=== PATIENT | female | born 1965 | race Caucasian/White ===

== ENCOUNTER 2022-04-26 14:28 | Emergency (ER) | payer MEDICARE, OTHER, SELFPAY ==
[2022-04-26] VITALS (7 sets, daily range): BP systolic 124–163; BP diastolic 68–84; PULSE 62–68; RESP 15–24; TEMP 36.7; O2SAT 95–98; BMI 31.7
--- NOTE | 2022-04-26 15:08 | EDS_ITS ---
HPI <DENISE Fisher - Last Filed: 04/26/22 21:45> History of Present Illness Chief Complaint: Neuro S/Sx Narrative Narrative: Presents to the ED with feelings of dizziness, left-sided face numbness, and feelings that her thought process is off. These feelings started shortly after she woke up at 8:00 am this morning. Patient states she went to her PCP appointment this morning and they suggested she come here to be checked out. Patient also admits to having a headache that started this afternoon, and is prone to headaches and migraines. She states this headache is along the temporal region bilaterally and she has had headaches like this in the past. PFSH <DENISE Fisher - Last Filed: 04/26/22 21:45> [facility] Medical History Depression History of stress test Hyperlipidemia Hypertension Incontinence Normal echocardiogram Spinal fracture Allergy/AdvReac Type Severity Reaction Status Date / Time acetaminophen [From Vicodin] Allergy Hives Verified 04/26/22 14:35 hydrocodone [From Vicodin] Allergy Hives Verified 04/26/22 14:35 Surgical History History of appendectomy History of orthopedic surgery History of rhinoplasty History of spinal fusion History of thyroidectomy Social History Smoking Status: Never smoker ROS <DENISE Fisher - Last Filed: 04/26/22 21:45> ROS ED Constitutional Constitutional ED: Denies chills, fever(s) or sweats Eyes Eyes: Denies blurry vision, change in vision, diplopia or loss of vision ENT ENT ED: Denies abnormal hearing, rhinorrhea, sore throat or tinnitus Cardiovascular Cardiovascular: Denies chest pain or palpitations Respiratory/Chest Respiratory/Chest: Denies cough or dyspnea Gastrointestinal Gastrointestinal: Denies abdominal pain, diarrhea, nausea or vomiting Genitourinary Genitourinary ED: Denies dysuria Musculoskeletal Musculoskeletal: Denies neck pain Integumentary Denies Abrasions or rash Neurologic Neurologic: Reports dizziness, headache(s) and numbness; Denies abnormal gait, abnormal speech, focal weakness or weakness EXAM <DENISE Fisher - Last Filed: 04/26/22 21:45> Physical Exam Const Vital Signs: 04/26/22 14:30 04/26/22 15:30 04/26/22 15:59 Temperature 98.1 F Temperature Source Oral Pulse Rate 68 65 Respiratory Rate 24 H 16 Blood Pressure 163/84 H 131/75 H Blood Pressure Mean 110 93 Pulse Ox 98 98 97 Oxygen Delivery Method Room Air Room Air Room Air 04/26/22 16:19 04/26/22 17:25 04/26/22 18:29 Temperature Temperature Source Pulse Rate 62 67 68 Respiratory Rate 16 15 16 Blood Pressure 144/78 H 160/82 H 129/72 H Blood Pressure Mean 100 108 91 Pulse Ox 97 98 95 Oxygen Delivery Method Room Air Room Air Room Air 04/26/22 18:36 Temperature Temperature Source Pulse Rate Respiratory Rate Blood Pressure 124/68 H Blood Pressure Mean Pulse Ox 97 Oxygen Delivery Method Positive well nourished HEENT Reports normocephalic, TM's clear and moist mucous membranes atraumatic; Negative for tenderness Tympanic Membrane ED: Yes TM's clear Eyes PERRL and EOMs intact bilaterally Neck supple General: Negative for tenderness Resp normal respiratory effort and clear to auscultation bilaterally Auscultation: Negative for rales, rhonchi or wheezes Cardio regular rate, regular rhythm and no murmurs GI non-tender and non-distended Palpation: soft Extremity normal to inspection and full ROM General Extremety ED: Negative for edema or tenderness General Extremity: Negative for edema Neuro oriented x3, CN's II-XII intact bilaterally, moves all extremities and no focal motor deficits Neuro Narrative: Decreased sensation to entire left side of face. Sensorium / Orientation: awake and alert Coordination / Balance: [id number]-[id number] test normal, [id number] test normal, Romberg test negative and rapid alternating mvmt upper ext normal Speech: speech normal Gait (Neuro): normal gait Motor Exam: strength 5/5 throughout; Negative for general weakness Psych mental status grossly normal Skin Lesions: no lesions Rashes: no rashes NIHSS NIHSS Initial: 1a Level of Consciousness: 0 1b LOC Questions (Score 2 if aphasic/stupor): 0 1c LOC Commands (Only score 1st attempt): 0 2 Best Gaze (If aphasic, use reflexive mvmts.): 0 3 Visual: 0 4 Facial Palsy: 0 5 Motor Arm Right (UN = amputation/fusion): 0 5 Motor Arm Left: 0 6 Motor Leg Right: 0 6 Motor Leg Left: 0 7 Limb ataxia (Only + if out of proportion): 0 8 Sensory (Aphasia/stupor=0 or 1, coma=2): 1 9 Best Language: 0 10 Dysarthria (mute, coma=2, intubated=UN): 0 11 Extinction and Inattention (only scored if +): 0 Total Score: 1 <Dr. Maximus Purcell MD - Last Filed: 04/26/22 17:20> Physical Exam Const Vital Signs: 04/26/22 14:30 04/26/22 15:30 04/26/22 15:59 Temperature 98.1 F Temperature Source Oral Pulse Rate 68 65 Respiratory Rate 24 H 16 Blood Pressure 163/84 H 131/75 H Blood Pressure Mean 110 93 Pulse Ox 98 98 97 Oxygen Delivery Method Room Air Room Air Room Air 04/26/22 16:19 04/26/22 17:25 04/26/22 18:29 Temperature Temperature Source Pulse Rate 62 67 68 Respiratory Rate 16 15 16 Blood Pressure 144/78 H 160/82 H 129/72 H Blood Pressure Mean 100 108 91 Pulse Ox 97 98 95 Oxygen Delivery Method Room Air Room Air Room Air 04/26/22 18:36 Temperature Temperature Source Pulse Rate Respiratory Rate Blood Pressure 124/68 H Blood Pressure Mean Pulse Ox 97 Oxygen Delivery Method NIHSS NIHSS Initial: Total Score: 1 MDM <DENISE Fisher - Last Filed: 04/26/22 21:45> [facility] MDM Narrative Medical decision making narrative: CT and CTA of the brain came back normal. Patient has been given Toradol and Reglan for her headache. Stroke neurology was consulted and it was their recommendation that as long as symptoms improve after headache treatment, it would be safe for her to discharge home with neurology follow-up due to having a very low risk of stroke. After treatment for the headache, patient reported that her head pain, vertigo, and the numbness on the left side of her face significantly improved, but not completely. Patient denies any confusion or disoriented thinking. Patient is stable and would like to discharge home with neurology follow-up. Lab Data Attestation: I reviewed the patient's lab results. Labs: Laboratory Results - last 24 hr 04/26/22 04/26/22 04/26/22 14:33 14:33 14:33 WBC 6.8 RBC 4.74 Hgb 14.7 Hct 42.7 MCV 90.1 MCH 31.0 MCHC 34.4 RDW Std Deviation 47.1 H RDW Coeff of Armando 14.4 Plt Count 326 MPV 10.7 Immature Gran % (Auto) 0.300 Neut % (Auto) 57.5 Lymph % (Auto) 28.7 [place] % (Auto) 8.9 Eos % (Auto) 3.7 Baso % (Auto) 0.9 Absolute Neuts (auto) 3.9 Absolute Lymphs (auto) 1.96 Nucleated RBC % 0 PT 12.7 INR 1.0 APTT 29.8 Sodium 144 Potassium 3.9 Chloride 113 H Carbon Dioxide 24.0 Anion Gap 7 BUN 14 Creatinine 1.01 Estim Creat Clear Calc 59.04 Est GFR (MDRD) Af Amer 72 Est GFR (MDRD) Non-Af 60 BUN/Creatinine Ratio 13.9 Glucose 95 Calcium 9.2 Troponin I High Sens 32 POC Glucose 04/26/22 16:26 WBC RBC Hgb Hct MCV MCH MCHC RDW Std Deviation RDW Coeff of Armando Plt Count MPV Immature Gran % (Auto) Neut % (Auto) Lymph % (Auto) [place] % (Auto) Eos % (Auto) Baso % (Auto) Absolute Neuts (auto) Absolute Lymphs (auto) Nucleated RBC % PT INR APTT Sodium Potassium Chloride Carbon Dioxide Anion Gap BUN Creatinine Estim Creat Clear Calc Est GFR (MDRD) Af Amer Est GFR (MDRD) Non-Af BUN/Creatinine Ratio Glucose Calcium Troponin I High Sens POC Glucose 84 Radiography Diagnostic Testing: Clinical Impression(s) from Imaging Studies Brain CT 04/26/22 15:09 IMPRESSION: No acute intracranial abnormality. Aspect score 10 Electronically Signed: Bernardo Shultz MD at 16:17 EST , ADDENDUM: 04/26/22 1632 IMPRESSION: No acute intracranial abnormality. Aspect score 10 N.B. : The above Results were Read Back by Bernardo Shultz MD to Leandra Hernandez PA, and understanding confirmed on 04/26/2022 16:26:00 (ET). Electronically Signed: Bernardo Shultz MD at 16:17 EST , Head/Neck CTA 04/26/22 15:10 IMPRESSION: Normal CTA Head and neck with contrast. Electronically Signed: Gregg Couch MD at 16:27 EST , ADDENDUM: 04/26/22 1639 IMPRESSION: Normal CTA Head and neck with contrast. N.B. : The above Results were Read Back by Gregg Couch MD to Leandra Hernandez PA, and understanding confirmed on 04/26/2022 16:32:16 (ET). Electronically Signed: Gregg Couch MD at 16:27 EST , Chest X-Ray 04/26/22 16:00 IMPRESSION: No acute cardiopulmonary pathology Electronically Signed: Gregg Couch MD at 16:54 EST , I reviewed CT and CTA and agree with radiologists findings. EKG Initial EKG: Interpretation: Sinus Rhythm Comments: rate 62 BPM. No signs of cardiac ischemia or ST elevation. This EKG has also been reviewed by attending ED physician. <Dr. Maximus Purcell MD - Last Filed: 04/26/22 17:20> [facility] Lab Data Labs: Laboratory Results - last 24 hr 04/26/22 04/26/22 04/26/22 14:33 14:33 14:33 WBC 6.8 RBC 4.74 Hgb 14.7 Hct 42.7 MCV 90.1 MCH 31.0 MCHC 34.4 RDW Std Deviation 47.1 H RDW Coeff of Armando 14.4 Plt Count 326 MPV 10.7 Immature Gran % (Auto) 0.300 Neut % (Auto) 57.5 Lymph % (Auto) 28.7 [place] % (Auto) 8.9 Eos % (Auto) 3.7 Baso % (Auto) 0.9 Absolute Neuts (auto) 3.9 Absolute Lymphs (auto) 1.96 Nucleated RBC % 0 PT 12.7 INR 1.0 APTT 29.8 Sodium 144 Potassium 3.9 Chloride 113 H Carbon Dioxide 24.0 Anion Gap 7 BUN 14 Creatinine 1.01 Estim Creat Clear Calc 59.04 Est GFR (MDRD) Af Amer 72 Est GFR (MDRD) Non-Af 60 BUN/Creatinine Ratio 13.9 Glucose 95 Calcium 9.2 Troponin I High Sens 32 POC Glucose 04/26/22 16:26 WBC RBC Hgb Hct MCV MCH MCHC RDW Std Deviation RDW Coeff of Armando Plt Count MPV Immature Gran % (Auto) Neut % (Auto) Lymph % (Auto) [place] % (Auto) Eos % (Auto) Baso % (Auto) Absolute Neuts (auto) Absolute Lymphs (auto) Nucleated RBC % PT INR APTT Sodium Potassium Chloride Carbon Dioxide Anion Gap BUN Creatinine Estim Creat Clear Calc Est GFR (MDRD) Af Amer Est GFR (MDRD) Non-Af BUN/Creatinine Ratio Glucose Calcium Troponin I High Sens POC Glucose 84 Radiography Diagnostic Testing: Clinical Impression(s) from Imaging Studies Brain CT 04/26/22 15:09 IMPRESSION: No acute intracranial abnormality. Aspect score 10 Electronically Signed: Bernardo Shultz MD at 16:17 EST , ADDENDUM: 04/26/22 1632 IMPRESSION: No acute intracranial abnormality. Aspect score 10 N.B. : The above Results were Read Back by Bernardo Shultz MD to Leandra Hernandez PA, and understanding confirmed on 04/26/2022 16:26:00 (ET). Electronically Signed: Bernardo Shultz MD at 16:17 EST , Head/Neck CTA 04/26/22 15:10 IMPRESSION: Normal CTA Head and neck with contrast. Electronically Signed: Gregg Couch MD at 16:27 EST , ADDENDUM: 04/26/22 1639 IMPRESSION: Normal CTA Head and neck with contrast. N.B. : The above Results were Read Back by Gregg Couch MD to Leandra Hernandez PA, and understanding confirmed on 04/26/2022 16:32:16 (ET). Electronically Signed: Gregg Couch MD at 16:27 EST , Chest X-Ray 04/26/22 16:00 IMPRESSION: No acute cardiopulmonary pathology Electronically Signed: Gregg Couch MD at 16:54 EST , EKG Initial EKG: Attestation: I personally reviewed and interpreted this EKG as follows: Interpretation: No Acute Injury Pattern Treatment and Re-Evaluation Narrative: Seen and evaluated independently and in conjunction with physician assistant professor of philosophy. Agree with notes above unless documented otherwise. Patient woke up with some symptoms developed others later, last known well around 8 AM this morning, presents afternoon for symptoms that include left facial paresthesias, some mild vertigo, and headache. NIHSS 1 for sensory only, there is no objective ataxia, her vertigo does not sound peripheral in nature and is no worse with head movements. For this reason we ordered a stroke work-up including CT and CT angiography of the head and neck, this was all negative. She is not able to have an MRI because she has an implanted bladder stimulator that is not compatible. We discussed with stroke neurology, if her headache improves with treatment, they recommend close outpatient follow-up with neurology which we have locally. Otherwise admission and repeat CT in 24 hours. Discharge Plan Triage Chief Complaint: Neuro S/Sx Other Complaint: Headache ED Midlevel Provider: Leandra Hernandez ED Provider: Maximus Purcell Dx/Rx/DC Orders Clinical Impression: Cephalgia, Vertigo, Facial paresthesia Instructions: ED Headache Unspecified, ED Vertigo, Unspecified Primary Care Provider: Dinora Rothman Referrals: Dinora Rothman MD [Primary Care Provider] - Patrick Ayala MD [Non-Staff -Ordering Privileges] - 3-5 Days Activity Restrictions/Additional Instructions: Please seek medical attention if you notice any new or worsening symptoms. Follow-up with neurology for atypical headache. Disposition Disposition: Home, Self Care Discharge Date/Time: 04/26/22 18:50
--- NOTE | 2022-04-26 15:09 | EKG12_ITS ---
Test Reason : NEURO Blood Pressure : / mmHG Vent. Rate : 062 BPM Atrial Rate : 062 BPM P-R Int : 158 ms QRS Dur : 082 ms QT Int : 414 ms P-R-T Axes : 054 017 039 degrees QTc Int : 420 ms Normal sinus rhythm Normal ECG Confirmed by GERMAIN PICKENS, NISHANT ([id number]), video news editor ALMAS HASSAN ([id number]) on 05/01/2022 9:16:37 A M Referred By: Confirmed By:JENNIFER GROVES MD
--- NOTE | 2022-04-26 15:09 | CT_ITS ---
We are attempting to reach an attending provider to discuss findings. An addendum with communication details will be sent when the communication is complete. EXAM: CT HEAD WITHOUT INTRAVENOUS CONTRAST CLINICAL INDICATION: Neuro deficit, acute, stroke suspected TECHNIQUE: Multiple axial images were obtained of the head without intravenous contrast. This CT exam was performed using one or more of the following dose reduction techniques: automated exposure control, adjustment of the mA and/or kV according to patient size, and/or use of iterative reconstruction technique. This report was created using [employer] report [employer] technology. COMPARISON: None. FINDINGS: BRAIN AND EXTRA-AXIAL SPACES: Normal. No intra- or extra-axial hemorrhage. No evidence of acute infarct. No intracranial mass or mass effect. There is preservation of the boyd/white matter interface. Posterior fossa structures are unremarkable. Ventricles are appropriate for age. No hydrocephalus. Basal cisterns are patent. BONES/JOINTS: Normal. No discrete lytic or blastic abnormalities. SINUSES: Unremarkable as visualized. No acute sinusitis. MASTOID AIR CELLS: Normal. Clear. ORBITS: Visualized globes, extraocular muscles, optic nerves and retrobulbar fat appear unremarkable. CT/STROKE Brain/Head without Cont IMPRESSION: No acute intracranial abnormality. Aspect score 10 Electronically Signed: Bernardo Shultz MD at 16:17 EST ,
--- NOTE | 2022-04-26 15:10 | CT_ITS ---
We are attempting to reach an attending provider to discuss findings. An addendum with communication details will be sent when the communication is complete. STUDY: CTA HEAD AND NECK WITH CONTRAST REASON FOR EXAM: Female, 56 years old. Neuro deficit, acute, stroke suspected RADIATION DOSAGE (If Supplied By Facility): CTDIvol = ( 27.79 ) mGy, DLP = ( 1366.70 ) mGycm TECHNIQUE: CT angiography was performed with a multi-detector CT scanner. Data acquisition was obtained from the skull base through the vertex following intravenous administration of IV 100mL Isovue-370. MIP images were reconstructed from the axial data set. Post-processing of the angiographic images was performed, with multiplanar reformation and 3D reconstruction. Individualized dose optimization techniques were used for this CT. COMPARISON: No relevant priors. FINDINGS: Normal bilateral petrous carotid arteries. Normal right cavernous carotid artery with a normal supraclinoid bifurcation. Normal left cavernous carotid artery with a normal supraclinoid bifurcation. Normal right A1 segments of the anterior cerebral artery. Normal left A1 segments of the anterior cerebral artery. Anterior communicating artery not visualized consistent with normal variant). Normal bilateral A2 segments of the anterior cerebral arteries. Normal right M1 and M2 segments of the middle cerebral arteries, with a normal M1 bifurcation. Normal left M1 and M2 segments of the middle cerebral arteries, with a normal M1 bifurcation. Normal right posterior communicating artery (PCOM). Left posterior communicating artery not visualized consistent with normal variant. Normal bilateral vertebral arteries. Normal basilar artery with a normal basilar bifurcation. The visualized bilateral superior cerebellar (SCA) arteries are normal. Normal bilateral P1, P2 and visualized P3 segments of the posterior cerebral arteries. There is no demonstrated aneurysm of the [place] of [place]. . AORTIC ARCH: Normal visualized aortic arch. Normal origins of the brachiocephalic, left common carotid, and left subclavian arteries. RIGHT CAROTID ARTERIES: Normal right common carotid artery (CCA). Normal right common carotid bulb. Normal origin of the right internal carotid (ICA) artery without a hemodynamically significant stenosis. Normal visualized cervical portion of the right internal carotid artery. Normal origin of the right external carotid artery (ECA). LEFT CAROTID ARTERIES: Normal left common carotid artery (CCA). Normal left common carotid bulb. Normal origin of the left internal carotid (ICA) artery without a hemodynamically significant stenosis. Normal visualized cervical portion of the left internal carotid artery. Normal origin of the left external carotid artery (ECA). VERTEBRAL ARTERIES: Right vertebral is dominant and normal caliber. The left vertebral is diffusely narrowed consistent with normal variant CT/STROKE CTA Head AND Neck W/Con IMPRESSION: Normal CTA Head and neck with contrast. Electronically Signed: Gregg Couch MD at 16:27 EST ,
[2022-04-26 15:38] LABS: Absolute Lymphocyte Count 1.96 X10^3/uL (0.83-4.51); Absolute Neutrophil Count 3.9 X10^3/uL (2.0-7.7); Basophil# 0.06 X10^3/uL; Basophil% 0.9 % (0-1); Eosinophil# 0.25 X10^3/uL; Eosinophils% 3.7 % (0-5); Hematocrit 42.7 % (37-47); Hemoglobin 14.7 g/dL (12.0-15.0); Lymphocyte # 1.96 X10^3/ul (0.83-4.51); Lymphocyte % 28.7 % (19-41); Mean Corp Hgb Conc 34.4 g/dL (32-36); Mean Corpuscular Volume 90.1 fL (81-99); Mean Platelet Vol. 10.7 fl (6.2-12.0); Monocyte# 0.61 X10^3/uL; Monocyte% 8.9 % (0-10); NRBC Flagged by Analyzer 0 % (0-5); Neutrophil # 3.94 X10^3/uL (2.7-7.7); Neutrophil % 57.5 % (47-70); Platelet Count 326 K/mm3 (150-450); RBC Distribution Width CV 14.4 % (11.6-14.6); RBC Distribution Width SD 47.1 fl (35.1-43.9); Red Blood Count 4.74 M/mm3 (4.2-5.4); White Blood Count 6.8 K/mm3 (4.4-11.0)
[2022-04-26 15:46] LABS: Prothrombin Time (Protime)PT. 12.7 SECONDS (11.7-14.9)
[2022-04-26 15:47] LABS: Partial Thromboplast Time 29.8 Seconds (24.1-36.2)
[2022-04-26 15:51] LABS: Anion Gap 7 (5-15); BUN 14 mg/dL (7-18); BUN/Creat Ratio 13.9 RATIO (10-20); Calcium,Total 9.2 mg/dL (8.5-10.1); Chloride 113 mmol/L (98-107); Creatinine, Serum 1.01 mg/dL (0.55-1.02); EST Glomerular Filtration Rate 60 mL/min (>60); Est Glom Filt Rate - Afr Amer 72 mL/min (>60); Estimated Creatinine Clearance 59.04 ml/min; Glucose 95 mg/dL (74-106); Potassium 3.9 mmol/L (3.5-5.1); Sodium Level 144 mmol/L (136-145); Troponin-I HS 32 pg/mL (3.0-54.0)
--- NOTE | 2022-04-26 16:00 | RAD_ITS ---
STUDY: X-RAY CHEST REASON FOR EXAM: Female, 56 years old. Neuro deficit, acute, stroke suspected TECHNIQUE: AP portable COMPARISON: None. FINDINGS: The lungs are clear and expanded. There is no demonstrated pleural abnormality. Normal size heart. Normal mediastinum and bright. Normal visualized pulmonary arteries. Normal visualized aortic arch and descending thoracic aorta. Dorsal spine demonstrates degenerative changes.. Normal visualized ribs, clavicles, and shoulders. There is no demonstrated abnormality of the visualized soft tissue structures of the upper abdomen. RAD/Chest 1 View IMPRESSION: No acute cardiopulmonary pathology Electronically Signed: Gregg Couch MD at 16:54 EST ,
[2022-04-26 16:45] LABS: Bedside Glucose 84 mg/dL (74-106)
[2022-04-26] MEDS: Metoclopramide 10 MG/2 ML Vial 5 MG IV (17:21)
[2022-04-26] MEDS: Ketorolac 30 MG/ML Syringe IV (17:21)
== END 2022-04-26 18:50 | disposition home or self-care (01) ==
PROVIDERS: Physician Assistant; Emergency Provider Emergency Medicine; PCP Internal Medicine; Visit Provider Emergency Medicine
DX: R42 Dizziness and giddiness (principal); R51.9 Headache, unspecified; I10 Essential (primary) hypertension; R20.2 Paresthesia of skin; E78.5 Hyperlipidemia, unspecified; F32.9 Major depressive disorder, single episode, unspecified
CPT/HCPCS: 70450; 70496; 70498; 71045; 80048; 82962; 84484; 85025; 85610; 85730; 93005; 96374; 96375; 99285; Q9967; A4216